=== PATIENT | male | born 1980 | race Caucasian/White ===

== ENCOUNTER 2019-09-20 10:32 | Observation (INO) | payer SELFPAY ==
[~2019-09-20] VITALS: Ht 182.9 cm; Wt 72.0 kg
[2019-09-20] MEDS ORDERED: LISI5 PO (11:33)
[2019-09-20] MEDS ORDERED: FUROSEMIDE20 MG PO (11:33)
[2019-09-20] MEDS ORDERED: NEPHRO-VITE RX1 EACH PO (11:34)
[2019-09-20] MEDS ORDERED: SEVEC800 PO (11:34)
[2019-09-20 12:16] LABS: BASOPHILS ABSOLUTE AUTO 0.03 K/mm3 (0.00-0.23); BASOPHILS PERCENT AUTO 0 % (0-2); EOSINOPHILS ABSOLUTE AUTO 0.04 K/mm3 (0.00-0.68); EOSINOPHILS PERCENT AUTO 0 % (0-6); Hematocrit 40.1 % (37.0-53.0); Hemoglobin 13.5 g/dL (13.5-17.5); IMMATURE GRAN ABSOLUTE AUTO 0.02 K/mm3 (0.00-0.10); IMMATURE GRAN PERCENT AUTO 0 % (0-1); LYMPHOCYTES ABSOLUTE AUTO 1.13 K/mm3 (0.84-5.20); LYMPHOCYTES PERCENT AUTO 12 % (21-46); MONOCYTES ABSOLUTE AUTO 0.46 K/mm3 (0.16-1.47); MONOCYTES PERCENT AUTO 5 % (4-13); Mean Corpuscular HGB 34.2 pg (26.0-34.0); Mean Corpuscular HGB Conc 33.7 g/dL (31.5-36.5); Mean Corpuscular Volume 102 fL (80-100); Mean Platelet Volume 10.1 fL (9.1-12.4); NEUTROPHILS ABSOLUTE AUTO 8.18 K/mm3 (1.96-9.15); NEUTROPHILS PERCENT AUTO 83 % (41-73); Platelet Count 250 K/mm3 (150-400); RDW Coefficient Variation 13.8 % (11.7-14.2); RDW Standard Deviation 51.8 fL (35.1-46.3); Red Blood Cell Count 3.95 M/mm3 (4.30-5.90); White Blood Cell Count 9.86 K/mm3 (4.00-11.30)
[2019-09-20 12:37] LABS: Albumin, Blood 4.3 g/dL (3.4-5.0); Albumin/Globulin Ratio 1.5 (0.8-1.8); Bilirubin, Total 0.7 mg/dL (0.1-1.0); Creatinine, Blood 5.61 mg/dL (0.60-1.20); Globulin, Blood 2.8 g/dL (2.2-4.0); Magnesium, Blood 2.3 mg/dL (1.6-2.4); Phosphorus, Blood 2.7 mg/dL (2.5-4.9); Potassium, Blood 4.6 mmol/L (3.5-5.5); Total Protein, Blood 7.1 g/dL (6.4-8.2)
[2019-09-20] MEDS ORDERED: ONDA4 PO (12:37)
--- NOTE | 2019-09-20 19:02 | NUR ---
PATIENT DC'D BACK TO CARE HOME WITH DEPUTY Bennie VILLALTA. CARLOS INSTRUCTIONS AND EDUCATION DISCUSSED WITH PATIENT AND COPY PROVIDED. PATIENT DENIES ANY FURTHER QUESTIONS OR CONCERNS.
== END 2019-09-20 19:38 | disposition home or self-care (01) ==
LOC: ER 10:32 → MEDS 10:33 → ER 13:00 → MEDS 13:10
PROVIDERS: Emergency Medicine; ADMIT Hospitalist
DX: R07.89 Other chest pain (principal); I13.2 Hypertensive heart and chronic kidney disease with heart failure and with stage 5 chronic kidney disease, or end stage renal disease; N18.6 End stage renal disease; I50.9 Heart failure, unspecified; I16.0 Hypertensive urgency; Z99.2 Dependence on renal dialysis; Z79.899 Other long term (current) drug therapy
CPT/HCPCS: 36415; 71045; 80053; 83735; 84100; 84484; 85025; 93005; 93010; 96372; 96374; 99284-25; G0378; J0360; J1644

== ENCOUNTER 2019-09-22 10:45 | Observation (INO) | payer SELFPAY ==
[~2019-09-22] VITALS: Ht 182.9 cm; Wt 74.8 kg
[~2019-09-22 10:45] MED LIST: FUROSEMIDE20 MG PO; LISI5 PO; NEPHRO-VITE RX1 EACH PO; ONDA4 PO; SEVEC800 PO
--- NOTE | 2019-09-22 11:50 | NUR ---
DIALYSIS LATE DUE TO CONFUSION WITH WHERE AND WHEN THEY WERE SUPPOSE TO BE.
[2019-09-22 12:44] LABS: Albumin, Blood 4.5 g/dL (3.4-5.0); Anion Gap 11 mmol/L (6-16); Blood Urea Nitrogen 52 mg/dL (8-24); Bun/Creatinine Ratio 9.2 (12.0-20.0); CO2, Blood 26 mmol/L (21-32); Calcium, Blood 8.8 mg/dL (8.5-10.1); Chloride, Blood 103 mmol/L (98-108); Creatinine, Blood 5.64 mg/dL (0.60-1.20); Glomerular Filtration Rate 12 (60-); Glucose, Blood 99 mg/dL (70-99); Potassium, Blood 4.2 mmol/L (3.5-5.5); Sodium, Blood 140 mmol/L (136-145)
--- NOTE | 2019-09-22 14:17 | NUR ---
DIALYSIS BEING DISCHARGED FROM ER
== END 2019-09-22 14:17 | disposition home or self-care (01) ==
LOC: ER 10:45 → MEDS 10:46
PROVIDERS: ADMIT Family Medicine
DX: I13.2 Hypertensive heart and chronic kidney disease with heart failure and with stage 5 chronic kidney disease, or end stage renal disease (principal); I50.9 Heart failure, unspecified; N18.6 End stage renal disease; D63.1 Anemia in chronic kidney disease; Z99.2 Dependence on renal dialysis
CPT/HCPCS: 80069; G0257